=== PATIENT | male | born 1950 | race Caucasian/White ===

== ENCOUNTER 2017-10-25 15:24 | Emergency (ER) | payer BC ==
--- NOTE | 2017-10-25 16:19 | EDM.PDOC ---
ED HPI GENERAL MEDICAL PROBLEM - General Chief Complaint: Allergic Reaction Stated Complaint: ALLERGIC REACTION Time Seen by Provider: 10/25/17 16:00 Source of Information: Reports: Patient History Limitations: Reports: No Limitations - History of Present Illness INITIAL COMMENTS - FREE TEXT/NARRATIVE: This patient said that he was at home and suddenly began having an itch on his left hand. He began scratching vigorously. Shortly afterwards his right hand began itching and followed by his feet. Finally the back of his neck started itching he was scratching all areas simultaneously. Eventually he felt his tongue was swelling. He took some Claritin and said that afterwards the symptoms seemed to haim. He's never had anything like this before where he itched although one time along time ago he had some sudden swelling in different areas of the body. He doesn't know what might have caused this today since he hasn't eaten anything unusual is not taking any medications. He feels pretty much back to normal now - Related Data Allergies Allergy/AdvReac Type Severity Reaction Status Date / Time No Known Allergies Allergy Verified 10/25/17 15:42 Home Meds: Home Meds Loratadine [Claritin] 10 mg PO ASDIRECTED 10/25/17 [History] Past Medical History HEENT History: Reports: Impaired Vision Cardiovascular History: Reports: Hypertension Musculoskeletal History: Reports: Arthritis, Back Pain, Chronic Social & Family History - Tobacco Use Smoking Status *Q: Never Smoker - Caffeine Use Caffeine Use: Reports: Coffee - Recreational Drug Use Recreational Drug Use: No ED ROS ALLERGIC REACTION - Review of Systems Review Of Systems: ROS reveals no pertinent complaints other than HPI. ED EXAM GENERAL NO PERIP PULSE - Physical Exam Exam: See Below Exam Limited By: No Limitations General Appearance: Alert, WD/WN, No Apparent Distress Eye Exam: Bilateral Eye: Normal Inspection Ears: Normal External Exam Nose: Normal Inspection Throat/Mouth: Normal Oropharynx (Time is normal size there is no oral pharyngeal edema) Head: Atraumatic Neck: Normal Inspection Respiratory/Chest: Lungs Clear Cardiovascular: Regular Rate, Rhythm GI/Abdominal: Non-Tender Back Exam: Normal Inspection Extremities: Normal Inspection Neurological: Alert, Oriented, Abnormal Reflexes Skin Exam: Warm, Dry, Normal Color, No Rash Course - Vital Signs Last Recorded V/S: Last Vital Signs Temp 36.8 C 10/25/17 15:40 Pulse 72 10/25/17 15:40 Resp 16 10/25/17 15:40 BP 157/84 H 10/25/17 15:40 Pulse Ox 95 10/25/17 15:40 Departure - Departure Time of Disposition: 16:14 Disposition: Home, Self-Care 01 Condition: Fair Clinical Impression: Urticaria - Discharge Information Instructions: Hives, [id number] Referrals: PCP,None [Primary Care Provider] - Forms: ED Department Discharge Additional Instructions: The reaction you're having is known as urticaria or hives. This can be brought on by any type of substance whether it be in a food chemicals lotions cosmetics drug or what ever. Even exposure to cold and sunlight can do this. Most people can never figure out what causes the episodes. The most important thing to know is that if this happens don't scratch since scratching causes the immune cells in your scan to release substances that will propagate the hives all over your body. Claritin is okay to take just follow package instructions. Usually we tell people to take Benadryl however. Benadryl can be chewed and takes effect faster than Claritin. Take the prednisone as directed. The prescription says take it for 5 days but 2 or 3 days would be just fine and you can save the rest in case you have another reaction. Since you had trouble with your tongue swelling you might consider having an epinephrine autoinjector close at hand. This could be life saving in case of a reaction severe enough to close your airway. These injectors are very expensive however.
== END 2017-10-25 16:39 | disposition home or self-care (01) ==
LOC: JP.ED 15:24
DX: L50.9 Urticaria, unspecified (principal); I10 Essential (primary) hypertension
CPT/HCPCS: 99283

== ENCOUNTER 2017-12-04 16:08 | Emergency (ER) | payer BC ==
[2017-12-04] MEDS ORDERED: methylPREDNISolone Sodium Succinate 125 MG/2 ML SDV IM ONE (16:36)
[2017-12-04] MEDS ORDERED: Famotidine 20 MG Tab PO ONE (16:36)
[2017-12-04] MEDS ORDERED: diphenhydrAMINE 25 MG Cap PO ONE (16:46)
--- NOTE | 2017-12-04 16:56 | EDM.PDOC ---
ED HPI GENERAL MEDICAL PROBLEM - General Chief Complaint: Allergic Reaction Stated Complaint: ALLERGIES Time Seen by Provider: 12/04/17 16:40 Source of Information: Reports: Patient History Limitations: Reports: No Limitations - History of Present Illness INITIAL COMMENTS - FREE TEXT/NARRATIVE: Cyrus presents today for complaints of hives and itching after eating summer sausage and beans today at 1300. Onset: Today, Sudden Duration: Hour(s): Location: Reports: Head, Neck, Other (Bilateral hands) Severity: Moderate Improves with: Reports: None Worsens with: Reports: Other (scratching) - Related Data Allergies Allergy/AdvReac Type Severity Reaction Status Date / Time No Known Allergies Allergy Verified 12/04/17 16:22 Home Meds: Home Meds Loratadine [Claritin] 10 mg PO ASDIRECTED 10/25/17 [History] Past Medical History HEENT History: Reports: Impaired Vision Cardiovascular History: Reports: Hypertension Respiratory History: Reports: Sleep Apnea Musculoskeletal History: Reports: Arthritis, Back Pain, Chronic - Past Surgical History HEENT Surgical History: Reports: Tonsillectomy Social & Family History - Tobacco Use Smoking Status *Q: Never Smoker - Caffeine Use Caffeine Use: Reports: Coffee - Alcohol Use Days Per Week of Alcohol Use: 4 Number of Drinks Per Day: 6 Total Drinks Per Week: 24 - Recreational Drug Use Recreational Drug Use: No ED ROS ALLERGIC REACTION - Review of Systems Review Of Systems: See Below Constitutional: Denies: Fever, Chills, Malaise, Weakness, Diaphoresis HEENT: Reports: Other (He does complain of hoarse voice and feeling of scratchy throat). Denies: Throat Pain, Throat Swelling Respiratory: Reports: Cough, Sputum, Other (He reports cough with clear sputum production ). Denies: Shortness of Breath, Wheezing, Hemoptysis Cardiovascular: Denies: Chest Pain, Dyspnea on Exertion, Edema, Lightheadedness , Palpitations, PND, Syncope Endocrine: Reports: No Symptoms GI/Abdominal: Reports: No Symptoms : Reports: No Symptoms Musculoskeletal: Denies: Hand Pain, Joint Pain, Joint Swelling, Muscle Pain, Muscle Stiffness Skin: Reports: Dryness, Pruritis, Rash, Erythema Neurological: Denies: Confusion, Dizziness, Headache, Numbness, Tingling, Weakness Psychiatric: Reports: No Symptoms Hematologic/Lymphatic: Reports: No Symptoms Immunologic: Reports: Food Allergy, Environmental Allergy ED EXAM GENERAL NO PERIP PULSE - Physical Exam Exam: See Below Exam Limited By: No Limitations General Appearance: Alert, Mild Distress Eye Exam: Bilateral Eye: EOMI, Normal Inspection, PERRL Ears: Normal External Exam, Normal Canal, Hearing Grossly Normal, Normal TMs, Other (Ear lobes red, warm) Nose: Normal Inspection, Normal Mucosa, No Blood Throat/Mouth: Normal Inspection, Normal Lips, Normal Teeth, Normal Oropharynx, No Airway Compromise, Other (Hoarse voice) Head: Atraumatic, Normocephalic Neck: Normal Inspection, Supple, Non-Tender, Full Range of Motion. No: Lymphadenopathy (R), Lymphadenopathy (L) Respiratory/Chest: No Respiratory Distress, Lungs Clear, Normal Breath Sounds, No Accessory Muscle Use, Chest Non-Tender Cardiovascular: Normal Peripheral Pulses, Regular Rate, Rhythm, No Edema, No Gallop, No Murmur, No Rub Back Exam: Normal Inspection, Full Range of Motion. No: CVA Tenderness (R), CVA Tenderness (L) Extremities: Normal Range of Motion, Non-Tender, No Pedal Edema, Normal Capillary Refill, Redness, Other (Redness and warmth noted to bilateral hands) Neurological: Alert, Oriented, CN II-XII Intact, Normal Cognition, Normal Gait, Normal Reflexes, No Motor/Sensory Deficits Psychiatric: Normal Affect, Normal Mood Skin Exam: Warm, Dry, Intact, Increased Warmth, Other (Dried palmar surface to left hand, bilateral hands have trace edema with warmth to touch, noted flat macular rash to posterior neck and scalp. ) Course - Vital Signs Last Recorded V/S: Last Vital Signs Temp 37.1 C 12/04/17 16:20 Pulse 69 12/04/17 16:20 Resp 16 12/04/17 16:20 BP 153/72 H 12/04/17 16:20 Pulse Ox 96 12/04/17 16:20 - Orders/Labs/Meds Meds: Medications Discontinued Medications Generic Name Dose Route Start Last Admin Trade Name Freq PRN Reason Stop Dose Admin Diphenhydramine HCl 25 mg 12/04/17 16:46 12/04/17 16:52 Benadryl PO 12/04/17 16:47 25 mg ONETIME ONE Administration Famotidine 20 mg 12/04/17 16:36 12/04/17 16:52 Pepcid PO 12/04/17 16:37 20 mg ONETIME ONE Administration Methylprednisolone Sodium Succinate 125 mg 12/04/17 16:36 12/04/17 16:53 Solu-Medrol IM 12/04/17 16:37 125 mg ONETIME ONE Administration - Re-Assessments/Exams Free Text/Narrative Re-Assessment/Exam: 12/04/17 18:48 Cyrus reports he feels much better, hand edema lessened, irritation of throat lessened. Patient will be discharged to home. Departure - Departure Time of Disposition: 18:50 Disposition: Home, Self-Care 01 Condition: Fair Clinical Impression: [id number] - Discharge Information Instructions: Angioedema, [id number], Hives, Allergies, Adult, [id number] Referrals: PCP,None [Primary Care Provider] - Forms: ED Department Discharge Additional Instructions: You have been evaluated and treated for angio edema urticaria in the emergency room today after eating some kind of meat at 1pm today. You were given: Solumedrol 125mg IM Benadryl 25mg by mouth Pepcid 20 mg by mouth This will help to get the allergic reaction under control. It would be best for you to take: Cetirizine (zyrtec) 10mg tablet, one tablet per day for seasonal allergies/ itching. Pepcid (famotidine) 20g tablet, one tablet per day for acid koby. Prednisone 40mg by mouth once a day in the morning for allergic reaction. Benadryl 25 mg to 50 mg to help with itching. Dry skin of left hand: Aveeno lotion to help with dryness. Follow up with primary provider for repeated angio edema episode, possible allergy testing. Carry epi-pen at all times in case of allergic reaction involving your ability to breath. - Assessment/Plan Assessment:: [id number] Plan: Patient evaluated and treated for angio edema urticaria in the emergency room today after eating some kind of meat at 1pm today. He was given: Solumedrol 125mg IM Benadryl 25mg by mouth Pepcid 20 mg by mouth This will help to get the allergic reaction under control. It would be best for him to take: Cetirizine (zyrtec) 10mg tablet, one tablet per day for seasonal allergies/ itching. Pepcid (famotidine) 20g tablet, one tablet per day for acid kboy. Prednisone 40mg by mouth once a day in the morning for allergic reaction. Benadryl 25 mg to 50 mg to help with itching. Dry skin of left hand: Aveeno lotion to help with dryness. Follow up with primary provider for repeated angio-edema episode, possible allergy testing. Carry epi-pen at all times in case of allergic reaction involving your ability to breath.
== END 2017-12-04 19:03 | disposition home or self-care (01) ==
LOC: JP.ED 16:08
DX: T78.3XXA Angioneurotic edema, initial encounter (principal); I10 Essential (primary) hypertension
CPT/HCPCS: 96372; 99283; A9270; J2930